=== PATIENT | male | born 1940 | race Caucasian/White ===

== ENCOUNTER → 2019-02-28 | Outpatient (CLI) | payer MEDICARE ==
--- NOTE | 2019-02-28 14:17 | US ---
EXAMINATION TYPE: US thyroid st tissue head/neck DATE OF EXAM: 02/28/2019 COMPARISON: NONE CLINICAL HISTORY: R49.8 Other voice and resonance disorders. GLAND SIZE: Right Lobe: 4.0 x1.5 x 0.8 cm Overall Parenchyma: homogenous Left Lobe: 3.4 1.3 x 1.3 cm Overall Parenchyma: homogeneous Isthmus Thickness: 0.3 cm NODULES RIGHT: # of nodules measured on right: 0 LEFT: # of nodules measured on left: 1 1. 0.3 X 0.3 x 0.3 cm mixed nodule at the mid pole with well-defined margins; . This nodule is wid er than tall and shows no intranodular vascularity. Prior size: no prior ISTHMUS: # of nodules measured in the isthmus: 0 Bilateral neck scanned, no evidence of lymphadenopathy. IMPRESSION: Solitary 3 mm left thyroid nodule. Otherwise unremarkable and homogeneous thyroid gland. Follow-up ultrasound of the thyroid is recommended in 12 months to reassess the left thyroid nodule.
== END | disposition home or self-care (01) ==
LOC: RADUSWWP 13:45
PROVIDERS: ATTEND Family Medicine
DX: E04.1 Nontoxic single thyroid nodule (principal)
CPT/HCPCS: 76536

== ENCOUNTER → 2020-01-15 | Outpatient (CLI) | payer MEDICARE ==
--- NOTE | 2020-01-15 15:10 | US ---
EXAMINATION TYPE: US thyroid st tissue head/neck DATE OF EXAM: 01/15/2020 COMPARISON: 2019 CLINICAL HISTORY: E04.1 thyroid nodule. GLAND SIZE: Right Lobe: 4.0 x 0.9 x 1.2 cm Overall Parenchyma: heterogenous Left Lobe: 4.2 x 1.4 x 1.2 cm Overall Parenchyma: heterogeneous Isthmus Thickness: 0.3 cm NODULES RIGHT: # of nodules measured on right: 1 1. 1.0 X 1.0 x 0.7 cm hypoechoic cystic nodule at the lower pole with well-defined margins; . This nodule is wider than tall and shows no intranodular vascularity. LEFT: # of nodules measured on left: 1 1. 0.3 X 0.3 x 0.5 cm hypoechoic cystic nodule at the mid pole with well-defined margins; . This n odule is wider than tall and shows no intranodular vascularity. Prior size: 0.3 x 0.3 x 0.3 cm Bilateral neck scanned, no evidence of lymphadenopathy. IMPRESSION: Nonspecific thyroid nodularity.
== END | disposition home or self-care (01) ==
LOC: RADUSWWP 14:03
PROVIDERS: ATTEND Family Medicine
DX: E04.1 Nontoxic single thyroid nodule (principal)
CPT/HCPCS: 76536

== ENCOUNTER → 2020-09-28 | Outpatient (CLI) | payer MEDICARE ==
--- NOTE | 2020-09-28 07:56 | US ---
EXAMINATION TYPE: US thyroid st tissue head/neck DATE OF EXAM: 09/28/2020 COMPARISON: US CLINICAL HISTORY: E04.1 Thyroid nodule R49.0 Hoarseness. F/U nodules GLAND SIZE: Right Lobe: 4.6 x 1.6 x 0.9 cm Overall Parenchyma: heterogenous Left Lobe: 4.0 x 1.6 x 0.9 cm Overall Parenchyma: heterogeneous Isthmus Thickness: 0.3 cm NODULES RIGHT: # of nodules measured on right: 1 1. 0.9 X 0.8 x 0.6 cm, lower, cystic or almost completely cystic, hypoechoic nodule, which is wider than tall, with smooth margins, without echogenic foci. Prior size: 1.0 x 1.0 x 0.7 cm LEFT: # of nodules measured on left: 1 1. 0.4 X 0.3 x 0.4 cm, mid, cystic or almost completely cystic, nodule, which is wider than tall, w ith smooth margins, without echogenic foci. Prior size: 0.3 x 0.3 x 0.5 cm Bilateral neck scanned, no evidence of lymphadenopathy. Stable sub-centimeter nodules bilaterally. IMPRESSION: Stable subcentimeter thyroid nodularity. Correlate for thyroiditis. 2017 ACR TI-RADS LEVEL: TR-RADS 2 - Not Suspicious: No FNA *Highest TI-RADS level nodule reported
== END | disposition home or self-care (01) ==
LOC: RADUSWWP 06:59
PROVIDERS: ATTEND Family Medicine
DX: E04.1 Nontoxic single thyroid nodule (principal)
CPT/HCPCS: 76536